=== PATIENT | male | born 1945 | race Caucasian/White ===

== ENCOUNTER 2017-05-08 06:40 | Emergency (ER) | payer OTHER ==
[2017-05-08 06:46] VITALS: BP 149/82; PULSE 100; RESP 16; TEMP 97.5; O2SAT 94
--- NOTE | 2017-05-08 07:09 | EDPHY ---
H & P Stated Complaint: nose bleed for 15min 2nd one in 3days on blood thinner Time Seen by Provider: 05/08/17 07:04 HPI/ROS: CHIEF COMPLAINT: Intermittent epistaxis HISTORY OF PRESENT ILLNESS: The patient presents the ED with complaints of intermittent epistaxis. The patient is currently anticoagulated with Eliquis. He had a self-limited episode of epistaxis 2 days ago which recurred today while driving to work. The patient's epistaxis resolved today with direct pressure. He denies any lightheadedness or dizziness. The patient denies recent history of nasal trauma. He denies any melena. He denies chest pain or shortness of breath. REVIEW OF SYSTEMS: A comprehensive 10 point review of systems is otherwise negative aside from elements mentioned in the history of present illness. Source: Patient - Personal History Current Tetanus/Diphtheria Vaccine: Yes Current Tetanus Diphtheria and Acellular Pertussis (TDAP): Yes - Medical/Surgical History Hx Asthma: No Hx Chronic Respiratory Disease: No Hx Diabetes: No Hx Cardiac Disease: Yes Hx Renal Disease: No Hx Cirrhosis: No Hx Alcoholism: No Hx HIV/AIDS: No Hx Splenectomy or Spleen Trauma: No Other PMH: A fib. Heart cath 2009. hernia repair right groin. Migraine. Rt hip replacement. He has no history of coronary artery disease and no family history of coronary artery disease - Social History Smoking Status: Never smoked - Physical Exam Exam: General Appearance: Alert, no distress Eyes: Pupils equal and round no pallor or injection ENT, Mouth: Area of old epistaxis noted to the left anterior nasal septum, currently hemostatic, no clots noted in nasal cavity. Respiratory: There are no retractions, lungs are clear to auscultation Cardiovascular: Regular rate and rhythm Gastrointestinal: Abdomen is soft and nontender, no masses, bowel sounds normal Neurological: A&O, normal motor function, normal sensory exam, normal cranial nerves Skin: Warm and dry, no rashes Musculoskeletal: Neck is supple nontender Extremities: symmetrical, full range of motion Constitutional: Initial Vital Signs Temperature (C) 36.4 C 05/08/17 06:42 Heart Rate 100 05/08/17 06:42 Respiratory Rate 16 05/08/17 06:42 Blood Pressure 149/82 H 05/08/17 06:42 O2 Sat (%) 94 05/08/17 06:42 O2 Delivery Mode Room Air Allergies/Adverse Reactions: No Known Allergies Allergy (Verified 05/08/17 06:45) Home Medications: Medication Instructions Recorded Levothyroxine [Synthroid 75 mcg 75 mcg PO DAILY06 03/17/14 (*)] Pravastatin Sodium [Pravachol] 40 mg PO DAILY 03/17/14 Rizatriptan Benzoate [Maxalt 10mg] 10 mg PO ONETIMEPRN PRN 03/17/14 SUMAtriptan [Imitrex Sc Injection] 6 mg SQ Q1H PRN 03/17/14 SUMAtriptan [Imitrex Sc Injection] 6 mg SQ Q1 PRN #4 vial 01/29/16 Eliquis 05/08/17 Medical Decision Making ED Course/Re-evaluation: The patient presents to the ED with hemostatic epistaxis. I did apply Afrin spray to the patient's nasal cavity. The patient has been advised to apply firm direct pressure in the event of recurrent bleeding. The patient is advised to return to the ED for uncontrolled epistaxis. He is given the contact number of the on-call Ear Nose Throat physician. - Data Points Medications Given: Discontinued Medications Oxymetazoline HCl (Afrin Nasal [place]) 2 sprays EACHNARE EDNOW ONE Stop: 05/08/17 07:15 Last Admin: 05/08/17 07:18 Dose: 2 sprays Departure - Departure Disposition: Home, Routine, Self-Care Clinical Impression: Acute anterior epistaxis Condition: Good Instructions: Nosebleed (ED) Additional Instructions: 1. In the event of recurrent bleeding please apply direct pressure to nasal bridge as directed in the emergency department. 2. Return to the emergency department for nasal bleeding which is not resolved with direct pressure after 15 min. 3. Please follow up with the Ear Nose Throat physician you have been referred to in the event of any ongoing intermittent nose bleeding. Referrals: Edis Davis DO [Primary Care Provider] - As per Instructions Hero Wolf MD [Medical Doctor] - As per Instructions
[2017-05-08] MEDS ORDERED: OXYMETAZOLINE 30 ML NASAL SPRAY EACHNARE ONE (07:14)
== END 2017-05-08 07:40 | disposition home or self-care (01) ==
DX: R04.0 Epistaxis (principal); I25.10 Atherosclerotic heart disease of native coronary artery without angina pectoris; Z79.01 Long term (current) use of anticoagulants

== ENCOUNTER 2017-12-19 05:43 | Day surgery (SDC) | payer OTHER ==
--- NOTE | 2017-12-18 16:04 | GHP ---
[f rep st] PREOP HISTORY AND PHYSICAL DATE OF ADMISSION: 12/19/2017 DATE OF PLANNED PROCEDURE: 12/19/2017. HPI: The patient is a 72-year-old male with a medial meniscal tear who initially was planned to have surgery last week at the surgery center, however, he went into AFib with a high rate in the 130s and 140s, and decision was made to reschedule him for [facility] when he returns for lef t knee partial medial meniscectomy. PRIOR MEDICAL HISTORY: Hypothyroidism, high cholesterol, migraine headaches, and AFib. PRIOR SURGICAL HISTORY: Total hip replacement on the right in 2013. Cardiac ablation in 2011. Ingu inal hernia repair, 2011. Cardiac catheterization, 2009. MEDICATIONS: Pravastatin 40 mg, rizatriptan 10 mg, sumatriptan 20 mg, Synthroid 75 mcg, topiramate 2 5 mg. ALLERGIES: No known drug allergies. SOCIAL HISTORY: He is , [place]. He does not smoke, does not drink alcohol. REVIEW OF SYSTEMS: No shortness of breath or chest pain. Otherwise, review of systems unremarkable. PHYSICAL EXAMINATION: VITAL SIGNS: 6 feet 1 inch tall, weighs 210 pounds. Blood pressure is 119/70 . His heart rate today is 70 and regular. HEENT: Normocephalic, atraumatic. Extraocular muscles i ntact. NECK: Supple. There is no lymphadenopathy, no JVD. CHEST: Clear to auscultation. CARDIOV ASCULAR: Regular rate and rhythm. ABDOMEN: Soft. Nondistended. Nontender. There is no hepatospl enomegaly. EXTREMITIES: Left knee without effusion. He has tenderness on the medial joint line. F ull extension. Flexes to 140 degrees. Knee is stable to varus and valgus stress testing. 1+ Lachma n with a firm endpoint. Negative posterior drawer. Calf is soft. He has 2+ dorsalis pedis, posteri or tibial pulses. IMAGING: MRI is reviewed. There was some mild chondral thinning in the patellofemoral compartment, a complex tear of the medial meniscus, smaller radial tear of the lateral meniscus. PLAN: We will proceed with arthroscopic partial medial meniscectomy and possible patellofemoral karina droplasty. We will do this at the hospital due to the underlying AFib and his high rate last visit. Preoperative paperwork was completed, and consent was filled out. /[id number]/MODL
[2017-12-19] MEDS ORDERED: ceFAZolin 2 GM/DEXTROSE 100 ML IV ONE (05:51)
[2017-12-19] MEDS ORDERED: LIDOCAINE 1% 2 ML INJ ID PRN (05:52)
[2017-12-19] MEDS ORDERED: LR 1,000 ML IV ONE (05:52)
--- NOTE | 2017-12-19 06:20 | PDANEPAE ---
ANE History of Present Illness knee arthroscopy, L ANE Past Medical History - Cardiovascular History Hx Hypertension: Yes Hx Arrhythmias: Yes Hx Chest Pain: No Hx Coronary Artery / Peripheral Vascular Disease: No Hx CHF / Valvular Disease: No Hx Palpitations: Yes Cardiovascular History Comment: PREV HX OF A-FIB TREATED WITH ABLATION 2009. paroxysmal atrial fibrillation, last on December 12 - Pulmonary History Hx COPD: No Hx Asthma/Reactive Airway Disease: No Hx Recent Upper Respiratory Infection: No Hx Oxygen in Use at Home: No Hx Sleep Apnea: No Sleep Apnea Screening Result - Last Documented: Negative - Neurologic History Hx Cerebrovascular Accident: No Hx Seizures: No Hx Dementia: No - Endocrine History Hx Diabetes: No Hypothyroid: Yes Hyperthyroid: No Obesity: mild Endocrine History Comment: HYPOTHYROID - Renal History Hx Renal Disorders: No - Liver History Hx Hepatic Disorders: No - Neurological & Psychiatric Hx Hx Neurological and Psychiatric Disorders: Yes Neurological / Psychiatric History Comment: MIGRAINES ALMOST WEEKLY CAFFEINE RELATED - Cancer History Hx Cancer: Yes Cancer History Comment: MELANOMA RT THIGH - Congenital Disorder History Hx Congenital Disorders: No - GI History GERD: no Hx Gastrointestinal Disorders: No - Other Health History Other Health History: PREV FEMUR FX - Chronic Pain History Chronic Pain: Yes (LT KNEE) - Surgical History Prior Surgeries: RT TOTAL HIP 03/2014. CATH ABLATION FOR A-FIB 2011. RT ING HERNIA X 2. FX JAW. ANE Review of Systems Review of Systems: - Exercise capacity METS (RN): 5 METS ANE Patient History - Allergies Allergies/Adverse Reactions: No Known Allergies Allergy (Verified 05/08/17 06:45) - Home Medications Home Medications: Levothyroxine [Synthroid 75 mcg (*)] 75 mcg PO HS 03/17/14 [Last Taken 12/18/17 22:00] Pravastatin Sodium [Pravachol] 40 mg PO HS 03/17/14 [Last Taken 12/18/17 22:00] Rizatriptan Benzoate [Maxalt 10mg] 10 mg PO ONETIMEPRN PRN 03/17/14 [Last Taken 12/17/17 15:00] Aspirin 81mg (*) DAILY 12/16/17 [Last Taken 12/11/17] Metoprolol Succinate Xr DAILY 12/16/17 [Last Taken 12/19/17 04:45] - Smoking Hx Smoking Status: Never smoked ANE Labs/Vital Signs - Vital Signs Height: 185.42 cm Weight: 91.172 kg ANE Physical Exam - Airway Neck exam: decreased ROM Mallampati Score: Class 2 Mouth exam: small mouth opening - Pulmonary Pulmonary: clear to auscultation - Cardiovascular Cardiovascular: regular rate and rhythym (occasional premature beats) - ASA Status ASA Status: II ANE Anesthesia Plan Anesthesia Plan: GA w LMA
--- NOTE | 2017-12-19 06:46 | PDHPUP ---
History & Physical Update H&P update statement: This history and physical update is based on an assessment of the patient which was completed after admission or registration (within 24 hours), but prior to the surgery/procedure. H&P update: H&P reviewed & patient examined, no change in patient's condition since H&P completed
[2017-12-19] MEDS ORDERED: BUPIVACAINE/EPI 0.5% 30 ML SDV ONE (06:48)
[2017-12-19] MEDS ORDERED: EPINEPHrine 1 MG/ML INJ ONE (06:48)
[2017-12-19] MEDS ORDERED: MIDAZOLAM 2 MG/2 ML VIAL IVP ONE (07:07)
[2017-12-19] MEDS ORDERED: MIDAZOLAM 2 MG/2 ML VIAL ONE (07:09)
[2017-12-19] MEDS ORDERED: fentaNYL 100 MCG/2 ML INJ ONE (07:13)
[2017-12-19] MEDS ORDERED: PROPOFOL 200 MG/20 ML VIAL ONE (07:13)
[2017-12-19] MEDS ORDERED: DEXAMETHASONE 4 MG/ML VIAL ONE (07:14)
[2017-12-19] MEDS ORDERED: LIDOCAINE 1% 300 MG/30 ML SDV ONE (07:34)
[2017-12-19] MEDS ORDERED: PHENYLEPHRINE HCL 100 MCG/ML SYR ONE (07:34)
[2017-12-19] MEDS ORDERED: HYDROCODONE/APAP 5/325 TAB PO PRN (07:43)
[2017-12-19] MEDS ORDERED: HYDROmorphONE/DILAUDID 1 MG/ML INJ IVP PRN (07:43)
[2017-12-19] MEDS ORDERED: oxyCODONE IR 5 MG TAB PO PRN (07:43)
[2017-12-19] MEDS ORDERED: ONDANSETRON 4 MG/2 ML VIAL IVP PRN (07:43)
[2017-12-19] MEDS ORDERED: fentaNYL 100 MCG/2 ML INJ IVP PRN (07:43)
[2017-12-19] MEDS ORDERED: NALOXONE HCL 0.4 MG/ML INJ IVP PRN (07:43)
[2017-12-19] MEDS ORDERED: ONDANSETRON 4 MG/2 ML VIAL ONE (07:50)
--- NOTE | 2017-12-19 08:14 | POSTOPPROG ---
Post Op Note Date of Operation: 12/19/17 Surgeon: Nico Wyatt Anesthesiologist: Enzo Anesthesia: GET(General Endotracheal) Pre-op Diagnosis: Lt medial meniscal tear Post-op Diagnosis: same Procedure: partial medial menisectomy, P-F chondroplasty Inf/Abcess present in the surg proc area at time of surgery?: No EBL: Minimal Complications: none
--- NOTE | 2017-12-19 08:37 | GOP ---
[f rep st] OPERATIVE REPORT DATE OF OPERATION: 12/19/2017 SURGEON: Nico Wyatt MD ANESTHESIA: General. ANESTHESIOLOGIST: Dr. Oneill. PREOPERATIVE DIAGNOSIS: Left knee medial meniscal tear. POSTOPERATIVE DIAGNOSIS: Left knee medial meniscal tear. PROCEDURE PERFORMED: 1. Arthroscopic partial medial meniscectomy. 2. Patellofemoral chondroplasty. FINDINGS: ESTIMATED BLOOD LOSS: Minimal. INDICATIONS: The patient is a 72-year-old male, who had a twisting injury to his knee. MRI showed a medial meniscal tear. He was symptomatic with this. Decision was made to proceed with an arthrosco pic partial medial meniscectomy. DESCRIPTION OF PROCEDURE: After appropriate informed consent was obtained, patient taken to the oper ating room, placed supine on operating table. Time-out was performed. Patient was identified, corre ct site was identified. He received 2 g of Ancef preoperatively. Following the induction of general endotracheal anesthesia the left lower extremity was prepped and draped in usual sterile fashion. I instilled 5 mL of 1% lidocaine with epinephrine into both anteromedial and anterolateral portals. W e made a small gris incision and introduced the camera through the standard lateral portal. Patellof emoral compartment was inspected. There was some grade 1 and 2 changes on the inferior pole of the p atella and mild grade 1 changes in the trochlear groove. I repositioned the camera obtained a standa rd anteromedial portal under direct visualization. He had a horizontal cleavage tear on the posterio r horn and body of the medial meniscus. The articular cartilage was mildly thin on the femoral condy le grade 2. Tibial plateau cartilage looked good. I debrided back the meniscal tear with a biter an d shaver to a stable smooth rim of tissue. Looking through the notch ACL PCL were both stable and in tact. The lateral meniscus and articular cartilage and lateral compartment was in good shape without injury. I repositioned the camera in the patellofemoral compartment and using a motorized shaver pe rformed a gentle patellofemoral chondroplasty. Instruments were withdrawn. Portal incisions were cl osed with 3-0 nylon. I instilled 30 mL of 0.5% Marcaine with epinephrine in the knee. Sterile dress ing was applied. Patient was awakened from anesthesia, taken to recovery room in satisfactory condit ion. There were no immediate intraoperative complications. COMPLICATIONS: None. DRAINS: None. /[id number]/MODL
[2017-12-19 09:41] VITALS: BP 108/66
--- NOTE | 2017-12-19 09:52 | POSTANESTH ---
Post Anesthetic Evaluation Cardiovascular Status: Similar to Pre-Op Cond Respiratory Status: Normal, Stable Level of Consciousness/Mental Status: Can Participate in Eval Pain Control: Adequate, Prn Tx Ordered Nausea/Vomiting Control: Adequate, Prn Tx Ordered Complications Possibly Related to Anesthesia: None Noted
== END 2017-12-19 09:34 | disposition home or self-care (01) ==
LOC: FSGY 05:43
PROVIDERS: ATTEND Orthopaedic Surgery
PROC: 0MQP4ZZ Repair Left Knee Bursa and Ligament, Percutaneous Endoscopic Approach (ICD-10-PCS; principal; 2017-12-19 07:15)
PROC: 0SBD4ZZ Excision of Left Knee Joint, Percutaneous Endoscopic Approach (ICD-10-PCS; principal; 2017-12-19 07:15)
DX: S83.232A Complex tear of medial meniscus, current injury, left knee, initial encounter (principal); X50.1XXA Overexertion from prolonged static or awkward postures, initial encounter; I48.91 Unspecified atrial fibrillation; E78.5 Hyperlipidemia, unspecified; E03.9 Hypothyroidism, unspecified; G43.909 Migraine, unspecified, not intractable, without status migrainosus
CPT/HCPCS: J0171; J0690; J1100; J2250; J2370; J2405; J2704; J3010

== ENCOUNTER 2018-03-09 05:55 | Observation (INO) | payer OTHER ==
[2018-03-09 06:37] LABS: PLATELET COUNT 174 10^3/uL (150-400)
--- NOTE | 2018-03-09 06:48 | EDPHY ---
H & P Stated Complaint: MONITOR ISSUE, V-TACH WHILE SLEEPING Time Seen by Provider: 03/09/18 06:02 HPI/ROS: Chief Complaint: Heart monitor irregularity HPI: 72-year-old male with a history of atrial fibrillation status post cardiac ablation was started on a ambulatory monitor by his fluorescent lamp replacer, Dr. Ghotra, yesterday. Patient was called this morning by his fluorescent lamp replacer after the monitoring company noted runs of ventricular tachycardia. These occurred while the patient was sleeping. He had no symptoms. He currently has no complaints for he does state that he got a call last night while watching television from the company who also noted and irregularity. Denies any chest pain. No lightheaded or syncope. No shortness of breath. He has been in his usual state of health. ROS: 10 systems were reviewed and were negative except those elements noted in the HPI. PMH: Atrial fibrillation, hypothyroidism Social History: No smoking, no alcohol, no recreational drug use Family History: non-contributory Physical Exam: Gen: Awake, Alert, No Distress HEENT: Nose: no rhinorrhea Eyes: PERRLA, EOMI Mouth: Moist mucosa Neck: Supple, no JVD Chest: nontender, lungs clear to auscultation Heart: S1, S2 normal, no murmur Abd: Soft, non-tender, no guarding Back: no CVA tenderness, no midline tenderness Ext: no edema, non-tender Skin: no rash Neuro: CN II-XII intact, Sensation grossly intact, Strength 5/5 in bilateral upper and lower extremities - Personal History Current Tetanus/Diphtheria Vaccine: Yes Current Tetanus Diphtheria and Acellular Pertussis (TDAP): Yes - Medical/Surgical History Hx Asthma: No Hx Chronic Respiratory Disease: No Hx Diabetes: No Hx Cardiac Disease: Yes Hx Renal Disease: No Hx Cirrhosis: No Hx Alcoholism: No Hx HIV/AIDS: No Hx Splenectomy or Spleen Trauma: No Other PMH: A fib. Heart cath 2009. hernia repair right groin. Migraine, knee repair. Rt hip replacement. He has no history of coronary artery disease and no family history of coronary artery disease - Social History Smoking Status: Never smoked Constitutional: Initial Vital Signs Temperature (C) 36.7 C 03/09/18 05:59 Heart Rate 75 03/09/18 05:59 Respiratory Rate 18 03/09/18 05:59 Blood Pressure 123/90 H 03/09/18 05:59 O2 Sat (%) 95 03/09/18 05:59 O2 Delivery Mode Room Air Allergies/Adverse Reactions: No Known Allergies Allergy (Verified 03/09/18 06:01) Home Medications: Medication Instructions Recorded Levothyroxine [Synthroid 75 mcg 75 mcg PO HS 03/17/14 (*)] Pravastatin Sodium [Pravachol] 40 mg PO HS 03/17/14 Rizatriptan Benzoate [Maxalt 10mg] 10 mg PO ONETIMEPRN PRN 03/17/14 SUMAtriptan [Imitrex Sc Injection] 6 mg SQ Q1 PRN #4 vial 01/29/16 Aspirin 81mg (*) DAILY 12/16/17 Metoprolol Succinate Xr DAILY 12/16/17 oxyCODONE IR [Oxycodone Ir (*)] 5 - 10 mg PO Q4HRS PRN tab 12/19/17 Medical Decision Making - Diagnostics Imaging Results: ECG 1. 06:07 a.m., sinus rhythm with a rate of 74, there is a borderline prolonged QT with a QTC of 476, no acute ST or T-wave changes. ECG 2., 6:35 a.m., atrial fibrillation with a ventricular rate of 114, no acute ST or T-wave changes. ED Course/Re-evaluation: 9-year-old male sent in by his fluorescent lamp replacer for reported runs of ventricular tachycardia on his ambulatory monitor. Patient is completely asymptomatic. My initial history patient was in sinus rhythm but during my conversation he went into atrial fibrillation with a rapid ventricular response. He is now again return to a sinus rhythm. His troponin is negative. No other acute changes on his ECG is. I have discussed with Dr. Bal, fluorescent lamp replacer. She is requesting the patient be admitted to cardiac monitoring under the hospitalist service and they will consult. I have paged Dr. Hatch. - Data Points Laboratory Results: Laboratory Results 03/09/18 06:11 03/09/18 06:11 03/09/18 03/09/18 03/09/18 06:11 06:11 06:11 WBC 5.91 10^3/uL 10^3/uL (3.80-9.50) RBC 5.24 10^6/uL 10^6/uL (4.40-6.38) Hgb 15.2 g/dL g/dL (13.7-17.5) Hct 46.4 % % (40.0-51.0) MCV 88.5 fL fL (81.5-99.8) MCH 29.0 pg pg (27.9-34.1) MCHC 32.8 g/dL g/dL (32.4-36.7) RDW 14.1 % % (11.5-15.2) Plt Count 174 10^3/uL 10^3/uL (150-400) MPV 11.3 fL fL (8.7-11.7) Neut % (Auto) 55.3 % % (39.3-74.2) Lymph % (Auto) 32.8 % % (15.0-45.0) [place] % (Auto) 10.0 % % (4.5-13.0) Eos % (Auto) 1.0 % % (0.6-7.6) Baso % (Auto) 0.7 % % (0.3-1.7) Nucleat RBC Rel Count 0.0 % % (0.0-0.2) Absolute Neuts (auto) 3.27 10^3/uL 10^3/uL (1.70-6.50) Absolute Lymphs (auto) 1.94 10^3/uL 10^3/uL (1.00-3.00) Absolute Monos (auto) 0.59 10^3/uL 10^3/uL (0.30-0.80) Absolute Eos (auto) 0.06 10^3/uL 10^3/uL (0.03-0.40) Absolute Basos (auto) 0.04 10^3/uL 10^3/uL (0.02-0.10) Absolute Nucleated RBC 0.00 10^3/uL 10^3/uL (0-0.01) Immature Gran % 0.2 % % (0.0-1.1) Immature Gran # 0.01 10^3/uL 10^3/uL (0.00-0.10) Sodium 141 mEq/L mEq/L (135-145) Potassium 4.2 mEq/L mEq/L (3.3-5.0) Chloride 110 mEq/L mEq/L (97-110) Carbon Dioxide 23 mEq/l mEq/l (22-31) Anion Gap 8 mEq/L mEq/L (6-14) BUN 26 mg/dL H mg/dL (7-23) Creatinine 0.9 mg/dL mg/dL (0.7-1.3) Estimated GFR > 60 Glucose 104 mg/dL H mg/dL (70-100) Calcium 8.8 mg/dL mg/dL (8.5-10.4) POC Troponin I 0.01 ng/mL ng/mL (0.00-0.08) Point of Care Test Results: Chemistry 03/09/18 06:11 POC Troponin I 0.01 ng/mL ng/mL (0.00-0.08) Departure - Departure Disposition: [facility] Inpatient Acute Clinical Impression: Atrial fibrillation, Arrhythmia Condition: Fair Referrals: Edis Davis DO [Primary Care Provider] - As per Instructions
--- NOTE | 2018-03-09 07:21 | CPEKG ---
Test Reason : OPEN Blood Pressure : / mmHG Vent. Rate : 074 BPM Atrial Rate : 073 BPM P-R Int : 191 ms QRS Dur : 100 ms QT Int : 429 ms P-R-T Axes : 068 053 029 degrees QTc Int : 476 ms Sinus rhythm Borderline prolonged QT interval Confirmed by Pola Nicholson ([id number]) on 03/09/2018 7:21:33 AM Referred By: Confirmed By:Pola Nicholson
--- NOTE | 2018-03-09 07:21 | CPEKG ---
Test Reason : OPEN Blood Pressure : / mmHG Vent. Rate : 114 BPM Atrial Rate : 337 BPM P-R Int : 135 ms QRS Dur : 151 ms QT Int : 408 ms P-R-T Axes : 245 194 -19 degrees QTc Int : 563 ms Atrial fibrillation Paired ventricular premature complexes RBBB and LPFB Confirmed by Pola Nicholson ([id number]) on 03/09/2018 7:21:33 AM Referred By: Confirmed By:Pola Nicholson
[2018-03-09] MEDS ORDERED: ACETAMINOPHEN 325 MG TAB PO PRN (08:51)
[2018-03-09] MEDS ORDERED: ONDANSETRON 4 MG/2 ML VIAL IVP PRN (08:51)
[2018-03-09] MEDS ORDERED: ONDANSETRON DISINTEGRATING 4 MG TAB PO PRN (08:51)
[2018-03-09] MEDS ORDERED: ENOXAPARIN 40 MG/0.4 ML SYR SC SCH (09:00)
[2018-03-09] MEDS ORDERED: METOPROLOL SUCCINATE XR 25 MG TAB PO SCH (09:00)
--- NOTE | 2018-03-09 09:16 | PDGENHP ---
History and Physical - Chief Complaint cardiac rehab nurse reporting VT - History of Present Illness 72yo M with history of paroxysmal atrial fibrillation s/p ablation in 2008, hypothyroidism who presents from home after ambulatory cardiac rehab nurse company called him reporting that he had an episode of a ventricular tachyarrhythmia this AM. He was sleeping when this episode occurred. They had also called him that he was in atrial fibrillation last night. He was asymptomatic throughout all of this. Denies any recent chest pain, palpitations, presyncope/syncope, dyspnea, change in exercise tolerance, leg swelling, orthopnea. Of note, he has never really had symptoms related to his atrial fibrillation. Only recent medication change was addition of metoprolol. Has been stable on his synthroid for quite some time. His outpatient assurance specialist is Dr Ghotra who he last saw 10/20/2017. He recently was placed on a cardiac rehab nurse to evaluate the burden of his afib. He does not have a known history of CAD. In the ED, he was initially in sinus rhythm and then developed afib with RVR at which time he was asymptomatic. Dr Laura Bal was called and advised admission. History Information - Allergies/Home Medication List Allergies/Adverse Reactions: No Known Allergies Allergy (Verified 03/09/18 06:01) Home Medications: Levothyroxine [Synthroid 75 mcg (*)] 75 mcg PO HS 03/17/14 [Last Taken 03/08/18] Pravastatin Sodium [Pravachol] 40 mg PO HS 03/17/14 [Last Taken 03/08/18] Rizatriptan Benzoate [Maxalt 10mg] 10 mg PO ONETIMEPRN PRN 03/17/14 [Last Taken 12/17/17 15:00] Aspirin [Aspirin 81mg (*)] 81 mg PO HS #0 12/16/17 [Last Taken 03/08/18] Metoprolol Succinate Xr [Toprol Xl 25 mg (*)] 12.5 mg PO DAILY #0 12/16/17 [ Last Taken 03/08/18] I have personally reviewed and updated: family history, medical history, social history, surgical history - Past Medical History Additional medical history: paroxysmal atrial fibrillation, HLD, hypothyroidism , osteoarthritis, headaches - Surgical History Additional surgical history: knee arthroscopy, afib ablation, R hip replacement - Family History Additional family history: No known CAD. - Social History Smoking Status: Never smoked Alcohol Use: None Drug Use: None Review of Systems Review of Systems: ROS: 10pt was reviewed & negative except for what was stated in HPI & below Physical Exam Physical Exam: Temp Pulse Resp BP Pulse Ox 36.8 C 74 16 119/81 H 96 03/09/18 07:24 03/09/18 08:14 03/09/18 08:14 03/09/18 08:14 03/09/18 08:14 Constitutional: no apparent distress, appears nourished, not in pain Eyes: PERRL, anicteric sclera, EOMI Ears, Nose, Mouth, Throat: moist mucous membranes, hearing normal, ears appear normal, no oral mucosal ulcers Cardiovascular: regular rate and rhythym, no murmur, rub, or gallop, pulses symmetric bilaterally, No JVD, No edema Respiratory: no respiratory distress, no rales or rhonchi, clear to auscultation Gastrointestinal: normoactive bowel sounds, soft, non-tender abdomen, no palpable masses Genitourinary: no bladder fullness, no bladder tenderness Skin: warm, normal color, no rashes or abrasions, no fluctuance, no induration, No mottled Musculoskeletal: full muscle strength, no muscle tenderness, normal joint ROM, no joint effusions Neurologic: AAOx3 Psychiatric: interacting appropriately, not anxious, not encephalopathic, thought process linear Lab Data & Imaging Review 03/09/18 06:11 03/09/18 06:11 WBC 5.91 10^3/uL (3.80-9.50) 03/09/18 06:11 RBC 5.24 10^6/uL (4.40-6.38) 03/09/18 06:11 Hgb 15.2 g/dL (13.7-17.5) 03/09/18 06:11 Hct 46.4 % (40.0-51.0) 03/09/18 06:11 MCV 88.5 fL (81.5-99.8) 03/09/18 06:11 MCH 29.0 pg (27.9-34.1) 03/09/18 06:11 MCHC 32.8 g/dL (32.4-36.7) 03/09/18 06:11 RDW 14.1 % (11.5-15.2) 03/09/18 06:11 Plt Count 174 10^3/uL (150-400) 03/09/18 06:11 MPV 11.3 fL (8.7-11.7) 03/09/18 06:11 Neut % (Auto) 55.3 % (39.3-74.2) 03/09/18 06:11 Lymph % (Auto) 32.8 % (15.0-45.0) 03/09/18 06:11 [place] % (Auto) 10.0 % (4.5-13.0) 03/09/18 06:11 Eos % (Auto) 1.0 % (0.6-7.6) 03/09/18 06:11 Baso % (Auto) 0.7 % (0.3-1.7) 03/09/18 06:11 Nucleat RBC Rel Count 0.0 % (0.0-0.2) 03/09/18 06:11 Absolute Neuts (auto) 3.27 10^3/uL (1.70-6.50) 03/09/18 06:11 Absolute Lymphs (auto) 1.94 10^3/uL (1.00-3.00) 03/09/18 06:11 Absolute Monos (auto) 0.59 10^3/uL (0.30-0.80) 03/09/18 06:11 Absolute Eos (auto) 0.06 10^3/uL (0.03-0.40) 03/09/18 06:11 Absolute Basos (auto) 0.04 10^3/uL (0.02-0.10) 03/09/18 06:11 Absolute Nucleated RBC 0.00 10^3/uL (0-0.01) 03/09/18 06:11 Immature Gran % 0.2 % (0.0-1.1) 03/09/18 06:11 Immature Gran # 0.01 10^3/uL (0.00-0.10) 03/09/18 06:11 Sodium 141 mEq/L (135-145) 03/09/18 06:11 Potassium 4.2 mEq/L (3.3-5.0) 03/09/18 06:11 Chloride 110 mEq/L (97-110) 03/09/18 06:11 Carbon Dioxide 23 mEq/l (22-31) 03/09/18 06:11 Anion Gap 8 mEq/L (6-14) 03/09/18 06:11 BUN 26 mg/dL (7-23) H 03/09/18 06:11 Creatinine 0.9 mg/dL (0.7-1.3) 03/09/18 06:11 Estimated GFR > 60 03/09/18 06:11 Glucose 104 mg/dL (70-100) H 03/09/18 06:11 Calcium 8.8 mg/dL (8.5-10.4) 03/09/18 06:11 POC Troponin I 0.01 ng/mL (0.00-0.08) 03/09/18 06:11 Visualized and Interpreted EKG results: Yes EKG additional interpertation: ECG #1: NSR, no acute ischemia, good R wave progression, left atrial enlargement, no q waves. ECG #2: Atrial fibrillation vs flutter with variable conduction, bifascicular block (RBBB and LPFB) Assessment & Plan Assessment: 72yo M with history of paroxysmal atrial fibrillation s/p ablation in 2008, HLD , and hypothyroidism who presents from home after ambulatory cardiac rehab nurse company called him reporting that he had an episode of a ventricular tachyarrhythmia this AM while sleeping. He was initially in sinus rhythm upon presentation to the ED but subsequently developed atrial fibrillation with RVR that appears to have aberrant conduction. Plan: #Wide complex tachycardia: Suspicious for atrial fibrillation with aberrancy rather than VT. He doesn't have a bundle block when in sinus so query whether this is rate dependent and occurs when he flipped into afib with RVR. He is asymptomatic and hemodynamically stable when this rhythm occurs. - Cardiology consulted - Awaiting rhythm strips from cardiac monitoring company - Check troponin, BNP, TSH - Continue metoprolol at current dose, likely plan to increase per cards recs - Telemetry monitoring #Paroxysmal atrial fibrillation: His [id number] score is 1. - Continue BB, aspirin 81mg daily #Hypothyroidism - Continue home synthroid #HLD - Continue statin Diet: NPO until have further information as to above rhythm VTE ppx: SCDs Code: full Dispo: Admit under observation
--- NOTE | 2018-03-09 09:55 | PDCARPN ---
Cardiology Progress Note Chief Complaint: Concerns about arrhythmias noted on [employer] monitor Assessment/Plan: Assessment: Patient is a 72 y/o male with history of pAF s/p ablation in [address] (in 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 Patient just received the monitor about two days ago, and has noted no symptoms (no chest pains or pressure, PND or orthopnea, palpitations, skipped beats, or fluttering). Overall, the patient has been feeling well. Exercise without limitations. Compliance with prescribed mediations has been good. Outpatient office notes from [facility] were reviewed. These notes also included a visit with EP in April 2017. Patient was last seen by [facility] at the end of November 2017 (pre operative for left knee surgery). Surgery (meniscus) went well for the patient, and no cardiovascular events were noted. [employer] monitor strips were reviewed today with what appears to be atrial fib /flutter with RBBB pattern (the rhythm strips were single lead, and an ECG did note a RBBB pattern during the arrhythmia). Once again, no symptoms have been noted (pre [employer], or during the time the patient has had the monitor). Plan: (1) TSH is pending and this result would be good to know prior to discharge (2) Would continue therapy on ASA alone ([id number] score is 1 for age) (3) Would maintain therapy on statins for HLP, and have annual assessment of cholesterol and LFTs (4) Would continue therapy on levothyroxine (5) Add a low dose of metoprolol tartrate (25 mg PO QHS) (6) Would arrange for patient to be seen by EP in the outpatient setting for further discussions about options (medications versus second ablation) (7) Patient can be discharged to home Subjective: No cardiovascular complaints - [employer] monitor with "arrhythmias" noted Reviewed/Discussed With: family, hospitalist Objective: Vital Signs (8 Hrs) Temp Pulse Resp BP Pulse Ox 03/09/18 08:45 36.5 C 61 16 137/82 H 94 03/09/18 08:14 74 16 119/81 H 96 03/09/18 07:24 36.8 C 74 20 125/79 H 92 Intake/Output (24 Hrs) 03/08/18 03/09/18 03/10/18 05:59 05:59 05:59 Other: Weight 95.5 kg Number of Stools Toilet 1 Result Diagrams: 03/09/18 06:11 03/09/18 06:11 EKG: Sinus rhythm (#1) Atrial fib/flutter (#2) Telemetry: Normal sinus rhythm - Physical Exam Constitutional: WDWN, healthy appearing, no apparent distress Eyes: PERRL, EOMI Ears, Nose, Mouth, Throat: moist mucous membranes Cardiovascular: regular rate and rhythm, no murmurs, no rubs, pulses symmetric bilat, No jugular vein distention Peripheral Pulses: 2+: dorsalis-pedis (R), dorsalis-pedis (L) Respiratory: clear to auscultate bilat, no crackles Gastrointestinal: normoactive bowel sounds Skin: no rashes, no edema Musculoskeletal: no muscular tenderness Neurologic: AAOx3, CN II-XII grossly intact Psychiatric: cooperative, interactive, following commands ICD10 Worksheet Patient Problems: Problems Problem Status Onset Arrhythmia Acute Atrial fibrillation Acute Osteoarthritis of right hip Acute
--- NOTE | 2018-03-09 12:03 | ECHO ---
[email or web address] [address] Main: [phone] Fax: Transthoracic Echocardiogram Name: CRISTELA ORONA MR#: [id number] Study Date: 03/09/2018 Study Time: 11:03 AM Date of : 1945 Age: 72 year(s) Height: 185.4 cm (73 in.) Weight: 95.26 kg (210 lb.) BSA: 2.2 m2 Gender: Male Examination: Echo Indication: Intermittent Atrial fibrillation Image Quality: Contrast: Requested by: Geoff Cleveland BP: 137 mmHg/82 mmHg Heart Rate: Rhythm: Normal sinus rhythm with ectopy Indication: Intermittent Atrial fibrillation Procedure Staff Mosaic Layer: Samy Mota RDCS Reading Physician: Fredo Ghotra MD Requesting Provider: Conclusions: Normal size left ventricle. No LV hypertrophy. Normal global systolic LV function. EF is 64 %. There is no significant mitral valve regurgitation. The aortic valve is normal in appearance and function. The pulmonic valve is normal in appearance and function. Several times during the exam the heart rate varied from normal sinus rhythm to atrial fibrillation/flutter. The heart rate was from 77 bpm to 138 bpm The patient currently has a holter monitor on from the [facility] office. Measurements: Chambers Valvular Assessment AV/MV Valvular Assessment TV/PV Normal Normal Normal Name Value Range Name Value Range Name Value Range Ao Aysha (MM): 3.8 cm (2.2 cm-3.7 AV Vmax: 1.40 m/s (1 m/s-1.7 TR Vmax: 2.89 mm/s ( - ) cm) m/s) TR PGmax: 33 mmHg ( - ) IVSd (2D): 1.0 cm (0.6 cm-1.1 AV maxP mmHg ( - ) syst. PAP: 38 mmHg ( - ) cm) LVOT Vmax: 0.98 m/s (0.7 m/s-1.1 PV Vmax: 0.83 m/s (0.6 m/s-0.9 LVDd (2D): 4.7 cm (4.2 cm-5.9 m/s) m/s) cm) MV E Vmax: 0.72 m/s ( - ) PV PGmax: 3 mmHg ( - ) LVDs (2D): 3.1 cm (2.1 cm-4 cm) LVPWd (2D): 0.9 cm (0.6 cm-1 cm) LVEF (2D): 64 (>=54 %) Continued Measurements: Chambers Valvular Assessment AV/MV Valvular Assessment TV/PV Patient: CRISTELA ORONA Study Date: 03/09/2018 Page 1 of 2 11:03 AM Name Value Name Value Name Value LADs Lon.4 cm MV E' Septal: 0.11 m/s CVP (est.): 5 mmHg LA Area: 21.0 cm2 MV E/E' Septal: 6.30 LA Volume: 68 ml LA Volume Index: 30.9 ml/m2 Findings: Left Ventricle: Normal size left ventricle. No LV hypertrophy. Normal global systolic LV function. EF is 64 %. No regional wall motion abnormality. Right Ventricle: Normal size right ventricle. Normal RV function. Left Atrium: The left atrium is normal in size. Right Atrium: The right atrium is normal in size. Mitral Valve: The mitral valve is normal in appearance and function. There is no significant mitral valve regurgitation. Aortic Valve: The aortic valve is normal in appearance and function. The aortic valve is tri-leaflet. There is no aortic valve regurgitation. Tricuspid Valve: The tricuspid valve appears normal. Pulmonic Valve: The pulmonic valve is normal in appearance and function. Aorta: The aorta is normal. Pericardium: No pericardial effusion. Exam Comments: Several times during the exam the heart rate varied from normal sinus rhythm to atrial fibrillation/flutter. The heart rate was from 77 bpm to 138 bpm The patient currently has a holter monitor on from the [facility] office. (No Signature Object) Patient: CRISTELA ORONA Study Date: 03/09/2018 Page 2 of 2 11:03 AM [id number]
[2018-03-09] MEDS ORDERED: METOPROLOL TARTRATE 25 MG TAB PO ONE (12:55)
--- NOTE | 2018-03-09 15:37 | PDDCSUM ---
Discharge Summary Discharge Summary: Date of Admission: 03/09/2018 Date of Discharge: 03/09/2018 Consultants: cardiology (Fredo Ghotra) Procedures/Studies: none Discharge Diagnoses: 1. Wide complex tachycardia, consistent with 2. Atrial flutter with aberrant conduction 3. Atrial fibrillation 4. Hyperlipidemia 5. Hypothyroidism Brief Hospital Course: 72yo M with history of paroxysmal atrial fibrillation s/p ablation in 2009, HLD , and hypothyroidism who presents from home after ambulatory cardiac rehab nurse company called him reporting that he had an episode of a ventricular tachyarrhythmia this AM while sleeping. He was initially in sinus rhythm upon presentation to the ED but subsequently developed a wide complex tachycardia that was consistent with atrial flutter with variable conduction and a rate dependent right bundle branch block. We reviewed his strips from his cardiac device and they were also consistent with this rhythm. We do not feel that he had VT. He was asymptomatic and normotensive throughout. After admission he did develop some atrial fibrillation with RVR. We increased his metoprolol and he responded nicely and remained in sinus rhythm at discharge. His [id number] score is 1 and he was continued on aspirin daily. He will follow up with Dr Ghotra as well as get referred to EP. Medications: Please refer to EMR for complete list. Changes this admission include stopping metoprolol XL 12.5mg daily and starting metoprolol tartrate 25mg BID. Follow Up Plan: 1. Clinic visit with Dr Ghotra on 04/03 2. EP will be calling patient to set up appointment Physical Exam: Vitals and telemetry reviewed, has been in sinus rhythm with HR 70s this afternoon and BP 120s/70s. RRR without murmur on cardiac exam, lungs are clear, no JVD or lower extremity edema.
[2018-03-09 15:40] VITALS: BP 158/90
[2018-03-09] MEDS ORDERED: ASPIRIN 81 MG CHEWABLE TAB PO SCH (21:00)
[2018-03-09] MEDS ORDERED: LEVOTHYROXINE 75 MCG TAB PO SCH (21:00)
[2018-03-09] MEDS ORDERED: PRAVASTATIN SODIUM 40 MG TAB PO SCH (21:00)
== END 2018-03-09 16:13 | disposition home or self-care (01) ==
LOC: F2W 08:30
PROVIDERS: ADMIT Family Medicine; ATTEND Internal Medicine
DX: I48.92 Unspecified atrial flutter (principal); I48.0 Paroxysmal atrial fibrillation; E78.5 Hyperlipidemia, unspecified; E03.9 Hypothyroidism, unspecified; Z96.641 Presence of right artificial hip joint
CPT/HCPCS: 93005; 93306; 99285; G0378; 84484-PO